=== PATIENT | male | born 1985 | race Two or more races ===

== ENCOUNTER 2016-05-11 12:43 | Emergency (ER) | payer MEDICAID, OTHER ==
[~2016-05-11] VITALS: Ht 188 cm; Wt 73.5 kg
[2016-05-11 12:51] VITALS: BP 128/85
[2016-05-11] MEDS ORDERED: KETOROLAC TROMETH 60MG/2ML VIAL IM ONE (14:45)
== END 2016-05-11 14:51 | disposition home or self-care (01) ==
LOC: ER 12:43
DX: S29.011A Strain of muscle and tendon of front wall of thorax, initial encounter (principal); M41.87 Other forms of scoliosis, lumbosacral region; W17.89XA Other fall from one level to another, initial encounter; Y93.23 Activity, snow (alpine) (downhill) skiing, snowboarding, sledding, tobogganing and snow tubing; Y99.8 Other external cause status; Y92.89 Other specified places as the place of occurrence of the external cause
CPT/HCPCS: 71020; 96372; 99284; J1885

== ENCOUNTER 2018-05-10 13:35 | Emergency (ER) | payer MEDICAID ==
[~2018-05-10] VITALS: Ht 193 cm; Wt 83.9 kg
[2018-05-10 13:48] VITALS: BP 133/94
== END 2018-05-10 15:39 | disposition home or self-care (01) ==
LOC: ER 13:50
DX: S29.011A Strain of muscle and tendon of front wall of thorax, initial encounter (principal); S21.102A Unspecified open wound of left front wall of thorax without penetration into thoracic cavity, initial encounter; W10.8XXA Fall (on) (from) other stairs and steps, initial encounter; Y93.01 Activity, walking, marching and hiking; Y92.89 Other specified places as the place of occurrence of the external cause; Y99.8 Other external cause status
CPT/HCPCS: 71101